=== PATIENT | male | born 1960 | race Caucasian/White ===

== ENCOUNTER 2025-08-07 15:46 | Outpatient (CLI) | payer OTHER, SELFPAY ==
--- NOTE | ~2025-08-07 | MR_ITS ---
EXAMINATION: MR shoulder RT wo/w con DATE: 08/07/2025 16:48 INDICATION: Strain of unspecified muscle, fascia, and tendon. Right shoulder strain. TECHNIQUE: Magnetic resonance imaging (MRI) of the right shoulder was performed without and with 15 mL MultiHance intravenous contrast. COMPARISON: None. FINDINGS: Coracoacromial arch: The acromion undersurface is curved in morphology (type II). There is severe acromioclavicular joint osteoarthritis. There is mild subacromial/subdeltoid bursitis. Rotator cuff: There is severe supraspinatus tendinopathy and moderate infraspinatus tendinopathy. Teres minor tendon is normal. There is moderate subscapularis tendinopathy. No tear. There is no asymmetric fatty atrophy of the rotator cuff muscle bellies. Biceps tendon and glenoid labrum: Biceps tendon is in bicipital groove. There is a partial tear of intra-articular biceps tendon. There is a degenerative tear of the anterior glenoid labrum. There is a 5 mm paralabral cyst posterosuperiorly. Fluid: There is no glenohumeral joint effusion. Bones/cartilage: There is cartilage surface irregularity of humeral head and glenoid. IMPRESSION: 1. Severe rotator cuff tendinopathy. No tear. 2. Mild glenohumeral joint chondrosis. 3. Severe acromioclavicular joint osteoarthritis. 4. Mild subacromial/subdeltoid bursitis. 5. Partial tear of proximal biceps tendon. Reviewed, dictated and finalized at location E.
== END 2025-08-07 15:47 | disposition home or self-care (01) ==
PROVIDERS: PCP Emergency Medicine; Visit Provider Emergency Medicine
DX: M75.31 Calcific tendinitis of right shoulder (principal); M94.211 Chondromalacia, right shoulder; M19.011 Primary osteoarthritis, right shoulder; M75.51 Bursitis of right shoulder; S46.911A Strain of unspecified muscle, fascia and tendon at shoulder and upper arm level, right arm, initial encounter
CPT/HCPCS: 73223; A9577